=== PATIENT | male | born 1995 | race Caucasian/White ===

== ENCOUNTER → 2019-03-17 15:05 | Outpatient (BNVA) | payer MEDICAID, SELFPAY | PROVIDERS: PCP Family Medicine; Visit Provider Nurse Practitioner Family | DX: Z00.00 Encounter for general adult medical examination without abnormal findings (principal); K59.00 Constipation, unspecified; E55.9 Vitamin D deficiency, unspecified | CPT/HCPCS: 82306 ==

== ENCOUNTER 2019-04-17 04:57 | Emergency (ER) | payer MEDICAID, SELFPAY ==
--- NOTE | 2019-04-17 05:05 | CTR_ITS ---
PROCEDURE INFORMATION: Exam: CT Abdomen And Pelvis With Contrast Exam date and time: 04/17/2019 5:15 AM Age: 23 years old Clinical indication: Nausea and vomiting; Abdominal pain; Acute; Prior surgery; Surgery date: 6+ months; Surgery type: Hernia repair; Additional info: Abd pain TECHNIQUE: Imaging protocol: Computed tomography of the abdomen and pelvis with intravenous contrast. Total DLP: 546.52 mGy-cm Radiation optimization: All CT scans at this facility use at least one of these dose optimization techniques: automated exposure control; mA and/or kV adjustment per patient size (includes targeted exams where dose is matched to clinical indication); or iterative reconstruction. Contrast material: OMNI 300; Contrast volume: 95 ml; Contrast route: 18G; COMPARISON: CT abdomen pelvis w con* [id number] 09/25/2017 2:39 AM FINDINGS: Lungs: Lung bases are clear. Liver: The liver is normal. Gallbladder and bile ducts: The gallbladder is normal. There is no biliary dilation. Pancreas: The pancreas is unremarkable. Spleen: The spleen is unremarkable. Adrenals: The adrenal glands are unremarkable. Kidneys and ureters: The kidneys are unremarkable. No hydronephrosis or stones. No ureteral dilation. Stomach and bowel: The stomach is unremarkable. The small bowel is nondilated. There is no sign of inflammation. The colon is nondistended, thin walled and diffusely fluid filled. There is no pericolonic edema. Appendix: The appendix is normal. Intraperitoneal space: There is no free air or significant intraperitoneal free fluid. Vasculature: The abdominal aorta is normal. There is no aneurysm or dissection. Lymph nodes: There is no lymphadenopathy in the retroperitoneum, mesentery, pelvis or inguinal regions. Bladder: The urinary bladder is unremarkable. Reproductive: The prostate and seminal vesicles are unremarkable. Bones/joints: Bones are unremarkable. Soft tissues: The abdominal wall is intact. CT/CT abdomen pelvis w con* [id number] IMPRESSION: Diffusely fluid-filled nondistended colon suggests a diarrheal illness. There is no sign of colitis. Radiation Dose CTDIVOL = (mGy): DLP = 546.52 (mGy-cm)
--- NOTE | 2019-04-17 05:06 | W.ED.ABDPA2 ---
Documented by User: Miguel Ángel Chapman MD 04/17/19 05:08 HPI - Abdominal Pain General: Chief Complaint: Abdominal Pain Stated Complaint: ABD PAIN Time Seen by Provider: 04/17/19 04:58 Source: patient Mode of arrival: ambulatory Limitations: no limitations History of Present Illness: HPI narrative: 23-year-old male started having right lower quadrant pain over the last few hours. He states it started out in the umbilical region and migrated to his right lower quadrant. He states pain sharp in nature and rates it a 5 out of 10 currently. He denies any vomiting or fever. Denies any worsening improving factors. MD elicited complaint: abdominal pain Pertinent past history: none Onset (ago): hour(s) Pain Consistency: constant Location: RLQ Severity: moderate Quality: sharp Radiation: none Migration to: RLQ Exacerbating factors: nothing Relieving factors: nothing Associated Symptoms: Denies chills, diarrhea, dysuria, fever(s), nausea and vomiting Review of Systems Const: Denies: fever, chills, body aches or change in appetite Eyes: Denies: blurry vision or eye discomfort ENMT: Denies: throat pain or dental pain Card: Denies: chest pain Resp: Denies: shortness of breath GI: Reports: abdominal pain; Denies: nausea, vomiting or diarrhea : Denies: painful urination Musc: Denies: neck pain or back pain Skin/Breast: Denies: rash Neuro: Denies: headache Psych: Denies: depression Ketan/Lymph: Denies: easy bruising All/Imm: Denies: hives PFSH ED PFSH: Medical History (Updated 04/17/19 @ 06:24 by Adriano Vaughn DO) Constipation (Acute) Surgical History (Updated 04/17/19 @ 05:07 by Miguel Ángel Chapman MD) H/O inguinal hernia repair (Acute) Family History Other Cancer Diabetes Hypertension Social History Smoking and tobacco status: never smoked Household members: family Marital status: Single Current occupational status: unemployed Physical Exam Const: COMMON NORMALS: no apparent distress, oriented x3 and healthy appearing HENMT: COMMON NORMALS: normocephalic and head/scalp atraumatic HEAD & SCALP: normocephalic and atraumatic Eye: COMMON NORMALS: PERRL and EOMs intact bilaterally PUPIL: Yes PERRL Neck/C-Spine: COMMON NORMALS: full ROM and supple Chest: COMMONS NORMALS: inspection of chest normal and palpation of chest normal Resp: COMMON NORMALS: normal respiratory effort, no retractions, no use of accessory muscles and clear to auscultation bilaterally AUSCULTATION: clear to auscultation bilaterally Cardio: COMMON NORMALS: regular rate, regular rhythm and no murmurs RATE: regular rate RHYTHM: regular rhythm GI: COMMON NORMALS: normal to inspection, nondistended, normoactive bowel sounds, soft to palpation and no masses PALPATION: Yes soft OTHER: moderate rlq tenderness Extremity: COMMON NORMALS: normal to inspection and full ROM Neuro: COMMON NORMALS: oriented x3, moves all extremities and no focal motor deficits Psych: COMMON NORMALS: mental status grossly normal, thought process normal and cooperative THOUGHT PROCESS: normal thought process Skin: COMMON NORMALS: no rashes or lesions noted and no wounds GENERAL SKIN EXAM: no rashes or lesions noted Course Vital Signs: Vital signs: Vital Signs Pulse Rate 73 04/17/19 05:07 Respiratory Rate 18 04/17/19 05:25 Blood Pressure 127/86 04/17/19 05:07 Pulse Oximetry 98 04/17/19 05:25 MDM - Abdominal Pain Lab Data: Labs: Lab Results 04/17/19 04/17/19 Range/Units 05:15 05:15 WBC 13.5 H (4.0-10.0) 10^3/ uL RBC 4.94 (4.1-5.3) 10^6/u L Hgb 15.9 (11.7-16.6) g/dL Hct 45.6 (42.0-52.0) % MCV 92.3 (80-94) fL MCH 32.2 (28.0-34.0) pg MCHC 34.9 (30.0-36.0) g/dL RDW 11.5 L (12.1-15.1) % Plt Count 233 (130-400) 10^3/c mm MPV 11.3 H (7.4-10.4) fL Neut % (Auto) 87.0 % Lymph % (Auto) 6.9 % Porter % (Auto) 4.5 % Eos % (Auto) 1.1 % Baso % (Auto) 0.2 % Neut # (Auto) 11.8 H (1.8-7.7) 10^3/u L Lymph # (Auto) 0.9 (0.8-4.8) 10^3/u L Porter # (Auto) 0.6 (0.2-0.9) 10^3/u L Eos # (Auto) 0.2 (0.0-0.8) 10^3/u L Baso # (Auto) 0.0 (0.0-0.1) 10^3/u L Nucleated RBC % (a uto) 0 % Nucleated RBCs # 0.0 /100WBC Sodium 138 (136-145) mmol/L Potassium 3.8 (3.5-5.1) mmol/L Chloride 97 L (98-107) mmol/L Carbon Dioxide 28 (22-29) mmol/L Anion Gap 16.8 (5-19) BUN 12 (6-20) mg/dL Creatinine 0.9 (0.7-1.2) mg/dL GFR Calculation 104.6 (90-130) mL/min Glucose 131 H (65-115) mg/dL Calcium 9.8 (8.5-10.5) mg/dL Total Bilirubin 0.5 (0.15-1.2) mg/dL AST 28 (0-40) U/L ALT 37 (0-41) U/L Alkaline Phosphata se 52 (40-130) IU/L Total Protein 7.8 (6.6-8.7) g/dL Albumin 4.7 (3.5-5.2) g/dL Globulin 3.1 (1.3-4.6) g/dL Lipase 20 (13-60) U/L Discharge Plan Discharge Patient Disposition: Home, Self-Care Clinical Impression: Gastroenteritis Condition: Stable Prescriptions: New ondansetron HCl 4 mg tablet 4 mg PO Q6H PRN (Reason: nausea and vomiting) Qty: 14 RF: 0 No Action omeprazole 20 mg capsule,delayed release(DR/EC) 20 mg PO DAILY RF: 0 ergocalciferol (vitamin D2) 50,000 unit capsule 50,000 unit PO .WEEKLY RF: 0 omega-3 fatty acids 1,000 mg capsule 1,000 mg PO DAILY RF: 0 Discharge Orders: Discharge Order (Routine); Ordered 04/17/19 Ordered By: Adriano Vaughn Discharge Diet: Clear Liquid Discharge Activity: Increase activity as tolerated Activity Restrictions/Additional Instructions: Clear liquid diet for 48 hours and advance as tolerated. May use the ondansetron as needed if worsens or changes return to the emergency room Sign Out Sign Out Data: Patient Sign Out occurred on 04/17/19 at 06:19. Patient's care was discussed, and care was transferred from to Adriano Vaughn DO. Coding Level of Care Code ED Mortgage Collector for Chg Fwd Exam Problem Focused Documented by User: Adriano Vaughn DO 04/17/19 06:26 HPI - Abdominal Pain General: Chief Complaint: Abdominal Pain Stated Complaint: ABD PAIN Time Seen by Provider: 04/17/19 04:58 [facility] ED PFSH: Medical History (Updated 04/17/19 @ 06:24 by Adriano Vaughn DO) Constipation (Acute) Surgical History (Updated 04/17/19 @ 05:07 by Miguel Ángel Chapman MD) H/O inguinal hernia repair (Acute) Family History Other Cancer Diabetes Hypertension Social History Smoking and tobacco status: never smoked Household members: family Marital status: Single Current occupational status: unemployed Course ED course: CT identifies the appendix it is normal. There is nondistended fluid-filled colon suggestive of gastroenteritis. Reviewed with the patient. Labs reviewed with the patient. We do not have a UA however he denies any dysuria urgency or frequency. He does report having had diarrhea which was consistent with his CT findings. He denies any hematochezia. Return if has problems. Reevaluation(s): Reevaluation #1: Abdominal exam mild tenderness no guarding or rebound no hepatosplenomegaly nondistended chest clear heart regular Time: 06:26 Vital Signs: Vital signs: Vital Signs Pulse Rate 73 04/17/19 05:07 Respiratory Rate 18 04/17/19 05:25 Blood Pressure 127/86 04/17/19 05:07 Pulse Oximetry 98 04/17/19 05:25 MDM - Abdominal Pain Lab Data: Labs: Lab Results 04/17/19 04/17/19 Range/Units 05:15 05:15 WBC 13.5 H (4.0-10.0) 10^3/ uL RBC 4.94 (4.1-5.3) 10^6/u L Hgb 15.9 (11.7-16.6) g/dL Hct 45.6 (42.0-52.0) % MCV 92.3 (80-94) fL MCH 32.2 (28.0-34.0) pg MCHC 34.9 (30.0-36.0) g/dL RDW 11.5 L (12.1-15.1) % Plt Count 233 (130-400) 10^3/c mm MPV 11.3 H (7.4-10.4) fL Neut % (Auto) 87.0 % Lymph % (Auto) 6.9 % Porter % (Auto) 4.5 % Eos % (Auto) 1.1 % Baso % (Auto) 0.2 % Neut # (Auto) 11.8 H (1.8-7.7) 10^3/u L Lymph # (Auto) 0.9 (0.8-4.8) 10^3/u L Porter # (Auto) 0.6 (0.2-0.9) 10^3/u L Eos # (Auto) 0.2 (0.0-0.8) 10^3/u L Baso # (Auto) 0.0 (0.0-0.1) 10^3/u L Nucleated RBC % (a uto) 0 % Nucleated RBCs # 0.0 /100WBC Sodium 138 (136-145) mmol/L Potassium 3.8 (3.5-5.1) mmol/L Chloride 97 L (98-107) mmol/L Carbon Dioxide 28 (22-29) mmol/L Anion Gap 16.8 (5-19) BUN 12 (6-20) mg/dL Creatinine 0.9 (0.7-1.2) mg/dL GFR Calculation 104.6 (90-130) mL/min Glucose 131 H (65-115) mg/dL Calcium 9.8 (8.5-10.5) mg/dL Total Bilirubin 0.5 (0.15-1.2) mg/dL AST 28 (0-40) U/L ALT 37 (0-41) U/L Alkaline Phosphata se 52 (40-130) IU/L Total Protein 7.8 (6.6-8.7) g/dL Albumin 4.7 (3.5-5.2) g/dL Globulin 3.1 (1.3-4.6) g/dL Lipase 20 (13-60) U/L Discharge Plan Discharge Patient Disposition: Home, Self-Care Clinical Impression: Gastroenteritis Condition: Stable Prescriptions: New ondansetron HCl 4 mg tablet 4 mg PO Q6H PRN (Reason: nausea and vomiting) Qty: 14 RF: 0 No Action omeprazole 20 mg capsule,delayed release(DR/EC) 20 mg PO DAILY RF: 0 ergocalciferol (vitamin D2) 50,000 unit capsule 50,000 unit PO .WEEKLY RF: 0 omega-3 fatty acids 1,000 mg capsule 1,000 mg PO DAILY RF: 0 Discharge Orders: Discharge Order (Routine); Ordered 04/17/19 Ordered By: Adriano Vaughn Discharge Diet: Clear Liquid Discharge Activity: Increase activity as tolerated Activity Restrictions/Additional Instructions: Clear liquid diet for 48 hours and advance as tolerated. May use the ondansetron as needed if worsens or changes return to the emergency room Sign Out Sign Out Data: Patient Sign Out occurred on 04/17/19 at 06:19. Patient's care was discussed, and care was transferred from to Adriano Vaughn DO. Coding Level of Care Code ED Mortgage Collector for Yakov Sosa Exam Problem Focused
[2019-04-17 05:07] VITALS: BP 127/86; PULSE 73; RESP 16; O2SAT 96; BMI 27.1
[2019-04-17] MEDS: sodium chloride 0.9% 1,000 ML 999 ML IV (05:20)
[2019-04-17] MEDS: ondansetron 2 mg/ML SDV 2 mL 4 MG IVP (05:21)
[2019-04-17 05:25] VITALS: RESP 18; O2SAT 98
[2019-04-17] MEDS: morphine 4 mg/mL SDV 1 mL IVP (05:25)
[2019-04-17 05:30] LABS: Basophils % 0.2 %; Eosinophils # 0.2 10^3/uL (0.0-0.8); Eosinophils % 1.1 %; Hematocrit 45.6 % (42.0-52.0); Hemoglobin 15.9 g/dL (11.7-16.6); Lymphocytes # 0.9 10^3/uL (0.8-4.8); Lymphocytes % 6.9 %; Mean Corpuscular HGB Conc 34.9 g/dL (30.0-36.0); Mean Corpuscular Hemoglobin 32.2 pg (28.0-34.0); Mean Corpuscular Volume 92.3 fL (80-94); Mean Platelet Volume 11.3 fL (7.4-10.4); Monocytes # 0.6 10^3/uL (0.2-0.9); Monocytes % 4.5 %; Neutrophils # 11.8 10^3/uL (1.8-7.7); Nucleated Red Blood Cells % 0 %; Platelet Count 233 10^3/cmm (130-400); Red Blood Count 4.94 10^6/uL (4.1-5.3); Red Cell Distribution Width 11.5 % (12.1-15.1); White Blood Count 13.5 10^3/uL (4.0-10.0)
[2019-04-17] MEDS: iohexol 300 mg/mL 100 mL Btl IV (05:46)
[2019-04-17 05:52] LABS: Alanine Aminotransferase 37 U/L (0-41); Albumin Level 4.7 g/dL (3.5-5.2); Alkaline Phosphatase 52 IU/L (40-130); Anion Gap 16.8 (5-19); Aspartate Amino Transferase 28 U/L (0-40); Blood Urea Nitrogen 12 mg/dL (6-20); Calcium 9.8 mg/dL (8.5-10.5); Carbon Dioxide 28 mmol/L (22-29); Chloride 97 mmol/L (98-107); Globulin 3.1 g/dL (1.3-4.6); Glomerular Filtration Rate 104.6 mL/min (90-130); Glucose 131 mg/dL (65-115); Lipase 20 U/L (13-60); Potassium 3.8 mmol/L (3.5-5.1); Sodium 138 mmol/L (136-145); Total Bilirubin 0.5 mg/dL (0.15-1.2); Total Protein 7.8 g/dL (6.6-8.7)
[2019-04-17 06:30] VITALS: BP 110/66; PULSE 18; RESP 18; O2SAT 96
== END 2019-04-17 06:32 | disposition home or self-care (01) ==
PROVIDERS: Emergency Medicine; Emergency Provider Family Medicine
DX: K52.9 Noninfective gastroenteritis and colitis, unspecified (principal)
CPT/HCPCS: 74177; 80053; 83690; 85025; 96361; 96374; 96375; 99282; 99283; J2270; J2405; J7030; Q9967

== ENCOUNTER → 2019-10-08 12:11 | Outpatient (BNVA) | payer MEDICAID, SELFPAY | PROVIDERS: Visit Provider Nurse Practitioner Family | DX: E78.1 Pure hyperglyceridemia (principal); R73.9 Hyperglycemia, unspecified; E55.9 Vitamin D deficiency, unspecified; K21.9 Gastro-esophageal reflux disease without esophagitis | CPT/HCPCS: 80053; 80061; 82306; 83036; 85025 ==

== ENCOUNTER 2019-12-30 08:06 | Outpatient (CLI) | payer MEDICAID, SELFPAY ==
--- NOTE | 2019-12-30 08:00 | US_ITS ---
WS: [id number] RIGHT UPPER QUADRANT ULTRASOUND HISTORY: ABDOMINAL PAIN COMPARISON: 04/17/2019 Liver: 13.6 cm in length. Normal size liver. No bile duct dilatation or mass. Gallbladder: Normally distended gallbladder with no stones or wall thickening. CBD: 0.2 cm Pancreas: Normal size and echogenicity. Right kidney: 10.0 cm in length. Normal size and echogenicity. No hydronephrosis or mass. Aorta and IVC: Unremarkable abdominal aorta and IVC. No ascites. US/US gall bladder [id number] IMPRESSION: Normal RIGHT upper quadrant ultrasound.
== END 2019-12-30 08:07 | disposition home or self-care (01) ==
LOC: US 08:08
PROVIDERS: PCP Nurse Practitioner Family; Visit Provider Surgery
DX: R10.9 Unspecified abdominal pain (principal)
CPT/HCPCS: 76705

== ENCOUNTER 2020-01-16 07:53 | Outpatient (CLI) | payer MEDICAID, SELFPAY ==
--- NOTE | 2020-01-16 07:57 | NM_ITS ---
WS: [id number] NUCLEAR MEDICINE HIDA SCAN CLINICAL INFORMATION: abdominal pain TECHNIQUE: Following intravenous administration of 8.3 mCi of technetium 99m mebrofenin, images of th e abdomen were obtained over the course of 60 minutes. Next, gallbladder ejection fraction was determ ined by obtaining preprandial and one-hour postprandial images of the gallbladder following oral rubens stion of Ensure. COMPARISON: Ultrasound December 30, 2019 FINDINGS: Normal hepatic uptake at 5 minutes. Gallbladder is visualized by 10 minutes. No evidence of acute cho lecystitis. Common bile duct is visualized. Normal small bowel activity. No evidence of choledocholit hiasis. Gallbladder ejection fraction 58% within normal limits. No evidence of chronic cholecystitis. NM/NM hepatobiliary w phar* [id number] IMPRESSION: 1. No evidence of acute or chronic cholecystitis. 2. Gallbladder ejection fraction 58% within normal limits.
== END 2020-01-16 07:54 | disposition home or self-care (01) ==
LOC: RAD 07:57
PROVIDERS: PCP Nurse Practitioner Family; Visit Provider Surgery
DX: R10.9 Unspecified abdominal pain (principal)
CPT/HCPCS: 78227; A9537

== ENCOUNTER → 2020-01-22 13:57 | Outpatient (BNVA) | payer MEDICAID, SELFPAY | PROVIDERS: PCP Nurse Practitioner Family; Visit Provider Surgery | DX: Z11.59 Encounter for screening for other viral diseases (principal); K80.20 Calculus of gallbladder without cholecystitis without obstruction | CPT/HCPCS: 87635 ==

== ENCOUNTER 2020-01-27 10:40 | Day surgery (SDC) | payer MEDICAID, SELFPAY ==
[2020-01-26 14:54] VITALS: BMI 23.9
[2020-01-27] VITALS (8 sets, daily range): BP systolic 119–156; BP diastolic 64–95; PULSE 56–90; RESP 12–23; TEMP 36.3–36.8; O2SAT 97–100
[2020-01-27] MEDS: sodium chloride 0.9% 1,000 ML 30 ML IV (11:39)
--- NOTE | 2020-01-27 11:44 | ANES.PREANE2 ---
Pre-Anesthetic Assessment Pre-Anesthetic Assessment: Height/Weight: Height 1.6 m Weight 61.235 kg Temp Pulse Resp BP Pulse Ox 97.4 F L 78 18 126/64 97 01/27/20 11:10 01/27/20 11:10 01/27/20 11:10 01/27/20 11:10 01/27/20 11:10 Preop Diagnosis: Biliary colic Proposed Procedure: Operation Date: 01/27/20 12:30 Proposed Procedures p Laparoscopic Cholecystectomy 39483 K80.20(Not Applicable) - Dandy Denise MD Familial anesthetic complications: None Was Beta Sam taken within 24 hours: N/A Last intake: Intake Last Liquid Date 01/26/20 Last Liquid Time 22:00 Last Solid Date 01/27/20 Last Solid Time 16:00 Social: Social History: No alcohol and No tobacco Exam: Pre-Anes Outpt Exam: alert, oriented x 3, clear to auscultation bilaterally and regular rate & rhythm Airway: Cervical ROM: WNL MP: 2 Dentition: Other (Chipped (L upper)) GI: GI: GERD Metabolic: Metabolic: Hyperlipidemia Anesthetic Plan: ASA status: 2 Anesthesia: General Risk of > 500 ml blood loss (7ml/kg in children): No Meds/Allergies Current Medications: Current Medications Generic Name Dose Route Start Last Admin Trade Name Freq PRN Reason Stop Dose Admin Sodium Chloride 1,000 mls @ 30 ml s/hr 01/27/20 10:45 01/27/20 11:39 Sodium Chloride 0.9% IV 01/28/20 10:44 30 mls/hr .Q24H [place] Administration PFSH Anesthesia PFSH: Medical History Constipation Generalized epilepsy Hypercholesteremia Hypertriglyceridemia Surgical History H/O inguinal hernia repair History of hernia repair Family History Other Cancer Diabetes Hypertension Social History Smoking and tobacco status: never smoked Second hand smoke exposure: No Alcohol intake: current Alcohol intake frequency: few times a month Alcohol type: hard liquor Lives independently: No Household members: family Marital status: Single Current occupational status: disabled History of recent travel: No Current gender identity: Male Data Anesthesia Cardiac Studies: No Data to Display
--- NOTE | 2020-01-27 12:02 | W.PM.OPSUD ---
Surgery/Procedure H&P Update DATE OF PROCEDURE: January 27, 2020 DATE H&P PERFORMED: 01/21/20 H&P UPDATE INFORMATION: I have reviewed H&P completed within last 30 days, I have examined patient prior to procedure and No changes to prior documentation PREOP DIAGNOSIS: Biliary colic PRIMARY INDICATION FOR PROCEDURE: The same PLANNED PROCEDURE: Operation Date: 01/27/20 12:30 Proposed Procedures p Laparoscopic Cholecystectomy 16595 K80.20(Not Applicable) - Dandy Denise MD
[2020-01-27] MEDS: lidocaine 2% INJ 20 mL INJECTION (13:56)
--- NOTE | 2020-01-27 14:13 | P.OP_ITS ---
Operative Report Date of procedure: January 27, 2020 Pre-op Diagnosis: Biliary colic Post-op diagnosis: other (Chronic cholecystitis) Procedure Done: Laparoscopic cholecystectomy Specimens removed/disposition: Gall bladder and contents Surgeon: Dandy Denise [employer] Serviceperson: Surgical ayush Figueroa Circulating nurse Padmaja Anesthesia: General (transit mixer driver Kyle) Estimated blood loss (mL): 5 Condition: stable Disposition: same day Brief History: This is a pleasant 24-year-old gentleman presents with history of abdominal pain after further evaluation appears to be recurrent biliary colic. Plan of care; After thorough history physical examination and reviewing the chart ,I counseled the patient for laparoscopic cholecystectomy possible open, indications risks including but not limited injury to the common bile duct and other viscera.benefits and alternatives all discussed with the patient, and she did agree to proceed. All questions have been answered and all concerns have been addressed to patient's satisfaction. Rationale was carefully and clearly discussed with the patient.Appropriate informed consent have been reviewed and signed. Procedure: Patient was identified in the holding area and taken back to the operative suite, placed in supine position intubated by anesthesia . Time-out was done verifying the patient's name/date of /planned procedure and destination after the procedure, all were in agreement. SCDs confirmed to be functioning, preoperative antibiotics administered per protocol, and beta terese protocol was confirmed. Patient was appropriately secured to the table, footboard was applied to the OR table, before prep and drape anesthesia was asked to tilt the table back and forth to make sure that the patient is appropriately secured and she was. Prep and drape of the abdomen was done under the usual sterile technique, followed by that infraumbilical skin incision,skin incision was done by a 15 blade knife, and stay sutures were applied to the fascia and Valles trocar technique was used to enter the abdominal without injuring any abdominal viscera, started by low flow gas insufflation followed by a high flow, started with a 10 mm laparoscope and under direct vision there was no evidence of any injuries, the scope then switched to a 30? ,10 millimeter scope and under direct visualization 5 millimeter trocar was inserted in the epigastric region followed by two 5 mm trocars were inserted in the right upper quadrant that was done after injection of local lidocaine 2% at all incision sites. Gallbladder showed mild chronic cholecystitis Patient was then positioned in the head up and tilted to the left Ratcheted forceps were introduced into the lateral most 5mm port and was applied unto the fundus of the gallbladder cephalad and using Bullet forceps the infundibulum of the gallbladder was retracted laterally. Using [place] forceps then L-hook cautery to dissect the peritoneum overlying the Calot's triangle whihc was then opened medially and laterally until the cystic duct and the cystic artery were skeletonized. Dissection was carried along the body of the gallbladder and after ensuring critical view of safety was identfied. Cystic duct and cystic artery where seen connected to the gallbladder. Clips were applied on the cystic duct towards the common bile duct 1 towards the gallbladder then divided is in sharp scissors, 2 clips were then applied onto the cystic artery and 1 towards the gallbladder and divided by sharp scissors. Dissection was then carried along of the gallbladder from the gallbladder fossa using cautery as well as sharp dissection with heat energy. The gallbladder then was dissected out from the gallbladder fossa totally , cholecystectomy was then achieved and was placed in an Endo Catch bag and then retrieved from the Valles trocar site under direct visualization using a 5 mm 30? scope through the epigastric trocar, specimen was then passed to the circulating nurse to go for permanent pathology,irrigation and hemostasis was done to the gallbladder fossa after hemostasis was secured, final survey laparoscopy was done that showed no injuries. The infraumbilical fascial defect was then closed using of eight #1 PDS sutures using a fascial closure device ;Branden Devries under direct visualization Gas was allowed to deflate,Trocars were then taken out under direct vision there was no evidence of bleeding Specimen was passed to the circulating nurse for permanent pathology. No drains were placed and the Infraumbilical incision as well as all trocar sites were closed by by 4-0 Monocryl to approximate the skin edges of the Infraumbilical incision, dressing was applied in the form of surgical glue and the patient patient got extubated and was taken to recovery area in a stable condition. Count of sponges,needles and instruments were completed at the end of the procedure I was present for the whole entire procedure.
[2020-01-27] MEDS: fentaNYL 50 mcg/mL INJ 2mL IVP (14:43)
[2020-01-27] MEDS: HYDROcodone-acetaminophen 5-325 mg Tablet 1 TAB PO (15:07)
[2020-01-27] MEDS: ondansetron 2 mg/ML SDV 2 mL 4 MG IVP (16:40)
--- NOTE | 2020-01-27 17:36 | ANE.PACU2 ---
Inpatient post-anesthesia follow up: Airway intact: Yes Vital signs: Temperature 98 F Pulse Rate 56 Respiratory Rate 17 Blood Pressure 119/72 Pulse Oximetry 100 Oxygen Delivery Me thod Room Air Oxygen Flow Rate 8 Fraction of Inspir ed Oxygen Hydration adequate: Yes Nausea and vomiting: No Pain level: 2 Mental status: Baseline
== END 2020-01-27 17:05 | disposition home or self-care (01) ==
PROVIDERS: PCP Nurse Practitioner Family; Visit Provider Surgery
PROC: 0FT44ZZ Resection of Gallbladder, Percutaneous Endoscopic Approach (ICD-10-PCS; CPT 47562; principal; 2020-01-27 12:30)
DX: K81.1 Chronic cholecystitis (principal); K21.9 Gastro-esophageal reflux disease without esophagitis; E78.5 Hyperlipidemia, unspecified
CPT/HCPCS: 47562; 12345; 88304; 96365; 96374; J0131; J0690; J1100; J2405; J2704; J2710; J3010; J3490; J7030

== ENCOUNTER → 2020-03-17 11:45 | Outpatient (BNVA) | payer MEDICAID, SELFPAY | PROVIDERS: PCP Nurse Practitioner Family; Visit Provider Nurse Practitioner Family | DX: R73.9 Hyperglycemia, unspecified (principal); E55.9 Vitamin D deficiency, unspecified; M72.2 Plantar fascial fibromatosis | CPT/HCPCS: 80053; 80061; 82306; 83036; 85025 ==

== ENCOUNTER → 2020-06-10 14:34 | Outpatient (BNVA) | payer MEDICAID, SELFPAY | PROVIDERS: PCP Nurse Practitioner Family; Referring Provider Nurse Practitioner Family; Visit Provider Podiatrist Foot & Ankle Surgery | DX: M79.671 Pain in right foot (principal) | CPT/HCPCS: 73630 ==

== ENCOUNTER → 2020-06-22 16:40 | Outpatient (BNVA) | payer MEDICAID, SELFPAY | PROVIDERS: PCP Nurse Practitioner Family; Visit Provider Nurse Practitioner Family | DX: M79.645 Pain in left finger(s) (principal) | CPT/HCPCS: 73130 ==

== ENCOUNTER → 2020-07-20 09:35 | Outpatient (BNVA) | payer MEDICAID, SELFPAY | PROVIDERS: PCP Nurse Practitioner Family; Visit Provider Specialist | DX: G40.309 Generalized idiopathic epilepsy and epileptic syndromes, not intractable, without status epilepticus (principal) | CPT/HCPCS: 99215 ==

== ENCOUNTER → 2020-08-23 07:48 | Outpatient (BNVA) | payer MEDICAID, SELFPAY | PROVIDERS: PCP Nurse Practitioner Family; Referring Provider Specialist; Visit Provider Specialist | DX: R56.9 Unspecified convulsions (principal) | CPT/HCPCS: 95816 ==

== ENCOUNTER → 2020-09-20 09:52 | Outpatient (BNVA) | payer MEDICAID, SELFPAY | PROVIDERS: PCP Nurse Practitioner Family; Visit Provider Specialist | DX: G40.309 Generalized idiopathic epilepsy and epileptic syndromes, not intractable, without status epilepticus (principal); F17.200 Nicotine dependence, unspecified, uncomplicated | CPT/HCPCS: 99214 ==

== ENCOUNTER → 2020-10-11 16:45 | Outpatient (BNVA) | payer MEDICAID, SELFPAY | PROVIDERS: PCP Nurse Practitioner Family; Visit Provider Nurse Practitioner Family | DX: R73.03 Prediabetes (principal); E55.9 Vitamin D deficiency, unspecified | CPT/HCPCS: 80053; 80061; 82306; 83036; 85025 ==

== ENCOUNTER → 2020-10-15 09:14 | Outpatient (BNVA) | payer MEDICAID, SELFPAY | PROVIDERS: PCP Nurse Practitioner Family; Visit Provider Nurse Practitioner Family | DX: N28.9 Disorder of kidney and ureter, unspecified (principal); R79.89 Other specified abnormal findings of blood chemistry | CPT/HCPCS: 80048 ==

== ENCOUNTER 2021-05-24 01:01 | Emergency (ER) | payer MEDICAID, SELFPAY ==
--- NOTE | 2021-05-24 01:04 | XRR_ITS ---
PROCEDURE INFORMATION: Exam: XR Right Hand Exam date and time: 05/24/2021 12:30 AM Age: 25 years old Clinical indication: Injury or trauma; Other: Crushing injury; Work related; Patient HX: Patient accidentally smashed tip of right index finger with a hammer at work. C/O pain. ; Additional info: Index finger injury TECHNIQUE: Imaging protocol: XR Right hand. Views: 3 or more views. COMPARISON: No relevant prior studies available. FINDINGS: Bones/joints: No acute fracture or dislocation. Soft tissues: Normal. XR/XR hand RT min 3V* [id number] IMPRESSION: No acute fracture or dislocation.
[2021-05-24 01:10] VITALS: BP 142/85; PULSE 99; RESP 16; TEMP 37; O2SAT 67; BMI 24.7
--- NOTE | 2021-05-24 01:29 | ED_ITS ---
HPI - Extremity Problem General: Chief complaint: Extremity Injury, Upper Stated complaint: RT Index Finger Pain Time Seen by Provider: 05/24/21 01:04 History of Present Illness: Patient is a 25-year-old male comes to the ED with finger injury. Patient smashed his right second digit by accident with a hammer around 10:00 tonight. Pain rated a 9 out of 10. Patient has not taken any [id number] pain med before coming to the ED. Associated symptoms: Deny chest pain, fever(s) or rash Review of Systems Const: Denies: fever(s), chills or fatigue Eyes: Denies: change in vision or eye discomfort ENMT: Denies: throat pain, odynophagia, nasal discharge or nasal congestion Card: Denies: chest pain, palpitations, edema, swelling of feet/ankles, dyspnea on exertion or orthopnea Resp: Denies: dyspnea, productive cough or non-productive cough GI: Denies: abdominal pain, nausea, vomiting, diarrhea, constipation or hematochezia : Denies: flank pain, difficulty urinating, dysuria or hematuria Musc: Reports: extremity pain (right index finger); Denies: neck pain, back pain or extremity swelling Skin/Breast: Denies: rash or new lesions Neuro: Denies: headache(s), numbness in extremities or weakness in extremities PFSH ED PFSH: Medical History Anal fissure Constipation Generalized epilepsy Hypercholesteremia Hypertriglyceridemia Psychiatric care Unspecified mood [affective] disorder Surgical History H/O inguinal hernia repair [facility] of [facility] Family History Other Cancer Diabetes Hypertension Social History Smoking and tobacco status: never smoked Second hand smoke exposure: No Alcohol intake: former Lives independently: No Household members: family Marital status: Single service: No Current occupational status: disabled History of recent travel: No Current gender identity: Male Physical Exam Const: COMMON NORMALS: no acute distress, patient oriented x3 and alert GENERAL APPEARANCE: cooperative and comfortable HENMT: COMMON NORMALS: normocephalic HEAD & SCALP: normocephalic MOUTH: Normal oral and palatal mucosa present THROAT: posterior oropharynx normal and uvula midline Neck/C-Spine: COMMON NORMALS: supple GENERAL: Yes normal visual inspection Resp: COMMON NORMALS: normal respiratory effort, No retractions, No use of accessory muscles and clear to auscultation bilaterally AUSCULTATION: clear to auscultation bilaterally Cardio: COMMON NORMALS: regular rate, regular rhythm, S1 normal heart sound present, S2 normal heart sound present, No gallops present (Cardio), No clicks present (Cardio), No murmurs present (Cardio) and Peripheral pulses 2+ throughout RATE: regular rate RHYTHM: regular rhythm HEART SOUNDS: S1 normal heart sound present and S2 normal heart sound present PERIPHERAL PULSES: Peripheral pulses 2+ throughout GI: COMMON NORMALS: Normal to inspection, nondistended, normoactive bowel sounds present, Soft to palpation, non-tender and no masses PALPATION: Yes Soft to palpation : COMMON NORMALS: Yes no CVA tenderness BLADDER/KIDNEY EXAM: Yes no CVA tenderness Back/Pelvis: COMMON NORMALS: no CVA tenderness Extremity: NARRATIVE EXTREMITY EXAM: Right hand?index finger?some erythema and swelling at distal tip. No subungual hematoma or nail damage seen. Tender to palpation over distal tip of finger. No lacerations or open wounds. Neuro: COMMON NORMALS: patient oriented x3 and moves all extremities SENSORIUM/ORIENTATION: Yes alert Skin: GENERAL SKIN EXAM: dry skin Course Vital Signs: Vital signs: Vital Signs Temperature 98.6 F 05/24/21 01:10 Pulse Rate 68 05/24/21 01:45 Respiratory Rate 18 05/24/21 01:45 Blood Pressure 142/85 05/24/21 01:10 Pulse Oximetry 98 05/24/21 01:45 MDM - Extremity (Nontraumatic) Medical Decision Making Patient is a 25 male comes to the ED with a right index finger injury. Patient accidentally hit distal end of right index finger with a hammer. No subungual hematoma or nailbed damage noted. He has some mild swelling and erythema at distal tip of right index finger. He also has some tenderness to palpation over distal tip of finger. X-ray of right hand showed no acute fractures or findings. Patient diagnosed with contusion of finger. Patient was put in a finger splint and was discharged home. He was told to follow-up with his primary care doctor in a week for reevaluation. Return to ED precautions given. Patient is to agree with plan. Imaging Data Xray Ortho: My impression: Right hand x-ray-no acute fractures or findings noted. Discharge Plan Discharge Patient Disposition: Home Clinical Impression: Contusion of finger of right hand Qualifiers: Encounter type: initial encounter Finger: index finger Damage to nail status: without damage Qualified Code(s): S60.021A - Contusion of right index finger without damage to nail, initial encounter Condition: Stable Prescriptions: No Action divalproex [Depakote ER] 500 mg tablet extended release 24 hr 500 mg PO DAILY Qty: 30 5RF cholecalciferol (vitamin D3) 50 mcg (2,000 unit) tablet 50 mcg PO DAILY Qty: 30 12RF Discharge Orders: Discharge ED (Routine); Ordered 05/24/21 Ordered By: Markel Solomon Referrals: Radha Weiss FNP [Primary Care Provider] - Discharge Diet: Regular Discharge Activity: Increase activity as tolerated Activity Restrictions/Additional Instructions: Follow-up with medical provider as directed in the next 7 to 10 days reevaluation. Wear finger splint for the next 5 to 7 days. You can take off finger splint multiple times a day and do some range of motion exercises in your finger to help with mobility. Take [id number] ibuprofen or Tylenol for pain. Return to the ER or your medical provider if condition worsens. Please read and understand discharge instructions. Thank you for choosing [facility] for your healthcare needs today. Please realize this is an emergency room and that we are providing you with a medical screening exam and this may not be complete and all inclusive of all the testing and or work up that you may need to determine your ailment or severity of your illness. It is very important that you follow up as instructed or that you return to the Emergency Department should you have concerns or if your condition changes or worsens in any way. Coding Level of Care Code ED Electric Blanket Packer for Yakov Sosa Exam Comprehensive
[2021-05-24] MEDS: ibuprofen 800 mg tablet PO (01:44)
[2021-05-24 01:45] VITALS: PULSE 68; RESP 18; O2SAT 98
== END 2021-05-24 01:47 | disposition home or self-care (01) ==
PROVIDERS: Emergency Provider Physician Assistant; PCP Nurse Practitioner Family
DX: S60.021A Contusion of right index finger without damage to nail, initial encounter (principal); W22.8XXA Striking against or struck by other objects, initial encounter
CPT/HCPCS: 73130; 99283

== ENCOUNTER 2021-11-21 12:58 | Emergency (ER) | payer MEDICAID, SELFPAY ==
[2021-11-21 13:04] VITALS: BP 142/73; PULSE 88; RESP 16; TEMP 36.6; O2SAT 96; BMI 24.5
--- NOTE | 2021-11-21 13:10 | ED.C_ITS ---
HPI - Psych General: Chief Complaint: Psychiatric Symptoms Stated Complaint: DEPRESSION/ ANXIETY Time Seen by Provider: 11/21/21 13:04 History of Present Illness: 26-year-old male presents because he is feeling little down and would like something to help him out. Patient denies any suicidal or homicidal ideations. Patient reports that his grandma at Sunday or Sunday and he just fell down about it. He would just like something to help him relax. Patient reports that he has had a history of seizures and was on Depakote in the past but he has been off of that for a while and has no night seizures. Patient with no complaints such as fevers chills cough or any other physical complaints. Associated symptoms: Reports depression; Deny homicidal ideation or suicidal ideation Review of Systems Const: Denies: fever(s) or chills Eyes: Denies: change in vision or blurry vision ENMT: Denies: throat pain or ear or mastoid pain Card: Denies: chest pain or palpitations Resp: Denies: dyspnea or productive cough GI: Denies: abdominal pain, nausea or vomiting : Denies: flank pain or difficulty urinating Musc: Denies: neck pain or back pain Skin/Breast: Denies: rash Neuro: Denies: headache(s) or dizziness Psych: Reports: depression; Denies: suicidal ideation or homicidal ideation PFSH ED PFSH: Medical History Anal fissure Constipation Generalized epilepsy Hypercholesteremia Hypertriglyceridemia Psychiatric care Unspecified mood [affective] disorder Surgical History H/O inguinal hernia repair History of colonoscopy (~09/2018) dr. [place] [facility] [place] of hernia repair Family History Other Cancer Diabetes Hypertension Social History Smoking and tobacco status: never smoked Second hand smoke exposure: No Alcohol intake: former Lives independently: No Household members: family Marital status: Single service: No Current occupational status: disabled History of recent travel: No Current gender identity: Male Course Vital Signs: Vital signs: Vital Signs Temperature 98 F 11/21/21 13:04 Pulse Rate 66 11/21/21 13:50 Respiratory Rate 16 11/21/21 13:04 Blood Pressure 127/78 11/21/21 13:50 Pulse Oximetry 98 11/21/21 13:50 Oxygen Delivery Me thod 11/21/21 13:50 MDM - Psych Medical Decision Making Patient with no suicidal homicidal ideations. Patient was not wanting a extended work-up or evaluation. Patient would like some the just help him with his mood and relax little bit. I discussed with him I will provide him with some Paxil to help with both depression and any anxiety. Patient stable and discharged home Discharge Plan Discharge Patient Disposition: Home Clinical Impression: Depression, Acute reaction to situational stress Condition: Stable Prescriptions: New Paxil 10 mg tablet 10 mg PO DAILY Qty: 30 0RF No Action divalproex [Depakote ER] 500 mg tablet extended release 24 hr 500 mg PO DAILY Qty: 30 5RF cholecalciferol (vitamin D3) 50 mcg (2,000 unit) tablet 50 mcg PO DAILY Qty: 30 12RF Discharge Orders: Discharge ED (Routine); Ordered 11/21/21 Ordered By: Arnold Solis Referrals: Radha Weiss FNP [Primary Care Provider] - Discharge Diet: Advance as tolerated Discharge Activity: Resume usual activity Patient Instructions: Depression (ED), Opioid Safety, Pain Management, Stress Activity Restrictions/Additional Instructions: Follow-up with your primary care provider as needed. Please call your local behavioral health provider if you need to visit with somebody to help you cope due to your recent loss Coding Level of Care Code ED Supervisor Lens Generating for Yakov Sosa
[2021-11-21 13:50] VITALS: BP 127/78; PULSE 66; O2SAT 98
== END 2021-11-21 13:45 | disposition home or self-care (01) ==
PROVIDERS: Emergency Provider Student in an Organized Health Care Education/Training Program; PCP Nurse Practitioner Family
DX: F32.A Depression, unspecified (principal); F43.0 Acute stress reaction
CPT/HCPCS: 99283

== ENCOUNTER 2021-11-21 18:20 | Emergency (ER) | payer MEDICAID, SELFPAY ==
[2021-11-21 18:24] VITALS: BP 140/85; PULSE 78; RESP 16; TEMP 36.7; O2SAT 97
--- NOTE | 2021-11-21 19:31 | W.ED.PSYCHS ---
HPI - Psych General: Chief Complaint: Psychiatric Symptoms Stated Complaint: Mother wants him 96\SI Time Seen by Provider: 11/21/21 18:50 History of Present Illness: 26-year-old male brought in by family because of concerns for suicidal ideation. Patient denies any suicidal ideation. Patient was seen by me this morning denied suicidal and homicidal ideation at that time. Patient mom states that he is. He reports that he does not want to stay and have any further work-up. He was prescribed Paxil this morning by me. Associated symptoms: Reports depression; Deny homicidal ideation or suicidal ideation Review of Systems Const: Denies: fever(s) or chills Card: Denies: chest pain or palpitations Resp: Denies: dyspnea or productive cough GI: Denies: abdominal pain, nausea or vomiting : Denies: flank pain or difficulty urinating Musc: Denies: neck pain or back pain Skin/Breast: Denies: rash or pruritus Neuro: Denies: headache(s) or numbness in extremities Psych: Reports: depression; Denies: anxiety, suicidal ideation or homicidal ideation [facility] ED PFSH: Medical History Anal fissure Constipation Generalized epilepsy Hypercholesteremia Hypertriglyceridemia Psychiatric care Unspecified mood [affective] disorder Surgical History H/O inguinal hernia repair History of colon[place] (~09/2018[place] [facility] [place] Family History Other Cancer Diabetes Hypertension Social History Smoking and tobacco status: never smoked Second hand smoke exposure: No Alcohol intake: former Lives independently: No Household members: family Marital status: Single service: No Current occupational status: disabled History of recent travel: No Current gender identity: Male Physical Exam Const: COMMON NORMALS: no acute distress, patient oriented x3 and alert Resp: COMMON NORMALS: normal respiratory effort, No use of accessory muscles and clear to auscultation bilaterally AUSCULTATION: clear to auscultation bilaterally Cardio: COMMON NORMALS: regular rate and regular rhythm RATE: regular rate RHYTHM: regular rhythm Neuro: COMMON NORMALS: patient oriented x3 SENSORIUM/ORIENTATION: Yes alert Psych: COMMON NORMALS: speech normal APPEARANCE: Yes grossly normal SPEECH: Yes normal speech MOOD & AFFECT: Yes depressed mood Course Vital Signs: Vital signs: Vital Signs Temperature 98.1 F 11/21/21 18:24 Pulse Rate 78 11/21/21 18:24 Respiratory Rate 16 11/21/21 18:24 Blood Pressure 140/85 11/21/21 18:24 Pulse Oximetry 97 11/21/21 18:24 Oxygen Delivery Me thod 11/21/21 18:24 MDM - Psych Medical Decision Making Patient continues denies suicidal homicidal thoughts or wanting to stay. Patient did not initially agree to stay 1 night then when it we told him that there was no beds available and we will have to look for beds outside of the facility he states that he was ready to go then. Mom feels that he does have some suicidal ideations. I discussed with mom that she does truly feel he has that then she will need to take him and go to the police department where they can fill out an affidavit and have a tax manager cpa sign it then he would be on a 96-hour hold. However he is multiple times denied it for me and I am unwilling to sign a hold since we do not have any indications that he is suicidal. Patient was discharged home with mom in stable condition as he requested Discharge Plan Discharge Condition: Stable Prescriptions: No Action divalproex [Depakote ER] 500 mg tablet extended release 24 hr 500 mg PO DAILY Qty: 30 5RF cholecalciferol (vitamin D3) 50 mcg (2,000 unit) tablet 50 mcg PO DAILY Qty: 30 12RF Paxil 10 mg tablet 10 mg PO DAILY Qty: 30 0RF Referrals: Radha Weiss FNP [Primary Care Provider] - Coding Level of Care Code ED Director Financial Services for Yakov Sosa
== END 2021-11-21 19:44 | disposition home or self-care (01) ==
PROVIDERS: Emergency Provider Student in an Organized Health Care Education/Training Program; PCP Nurse Practitioner Family
DX: R45.851 Suicidal ideations (principal)
CPT/HCPCS: 99285

== ENCOUNTER → 2021-11-23 12:00 | Outpatient (BNVA) | payer MEDICAID, SELFPAY | PROVIDERS: PCP Nurse Practitioner Family; Visit Provider Nurse Practitioner Family | DX: F41.9 Anxiety disorder, unspecified (principal); F32.A Depression, unspecified; R45.4 Irritability and anger; E55.9 Vitamin D deficiency, unspecified; R73.9 Hyperglycemia, unspecified; E78.1 Pure hyperglyceridemia; R19.7 Diarrhea, unspecified; R63.0 Anorexia | CPT/HCPCS: 80053; 80061; 82306; 82607; 83036; 84443; 85025 ==

== ENCOUNTER → 2022-12-26 14:44 | Outpatient (BNVA) | payer MEDICAID, SELFPAY | PROVIDERS: PCP Nurse Practitioner Family; Visit Provider Specialist | DX: F41.9 Anxiety disorder, unspecified; F32.A Depression, unspecified; G40.109 Localization-related (focal) (partial) symptomatic epilepsy and epileptic syndromes with simple partial seizures, not intractable, without status epilepticus; R45.4 Irritability and anger | CPT/HCPCS: 99215 ==

== ENCOUNTER 2023-11-19 18:49 | Emergency (ER) | payer MEDICAID, SELFPAY ==
[2023-11-19 18:57] VITALS: BP 117/80; PULSE 86; RESP 16; TEMP 36.6; O2SAT 94
[2023-11-19] MEDS: lidocaine 2% INJ 20 mL INJECTION (19:50)
[2023-11-19] MEDS: cephALEXin 500 mg Capsule PO (20:42)
[2023-11-19] MEDS: mupirocin oint 22 gm 1 APPLIC TOPICAL (20:43)
[2023-11-19 20:45] VITALS: BP 125/79; PULSE 91; O2SAT 95
--- NOTE | 2023-11-20 00:31 | W.ED.SKABFB ---
HPI - Skin/Abscess/Foreign Bdy General: Chief complaint: Skin/Abscess/Foreign Body Stated complaint: Fish Hook in left palm Time Seen by Provider: 11/19/23 19:32 Source: patient Mode of arrival: ambulatory Limitations: no limitations History of Present Illness: Patient is a 28-year-old male who presents the emergency department with a fishhook stuck in left hand this occurred prior to arrival. Pain noted to palmar aspect of left hand, states his tetanus is up-to-date. Bleeding controlled on arrival. Has not taken anything for pain yet. No other concerning historical elements or symptoms reported this time. MD complaint: foreign body Onset (ago): hour(s) Tetanus up to date: yes Location: L hand Context: other ([place] in left hand) Associated symptoms: Deny chills, fever(s), nausea or vomiting Related Data Previous Rx's Medication Instructions Recorded cyanocobalamin (vitamin B-12) 1,000 mcg sublingual DAILY #90 ea 12/01/21 1,000 mcg sublingual lozenge omega-3 fatty acids 1,000 mg 1,000 mg PO DAILY #90 caps 12/01/21 capsule amoxicillin 875 mg tablet 875 mg PO BID #20 tabs 02/13/22 paroxetine HCl 10 mg tablet See Rx Instructions .Route 06/29/22 .COMPLEX #30 tabs divalproex 500 mg tablet,extended 500 mg PO BID #60 tabs 12/26/22 release 24 hr (Depakote ER) cephalexin 500 mg capsule 500 mg PO BID 7 days #14 caps 11/19/23 mupirocin 2 % topical ointment 1 applic topical BID #15 grams 11/19/23 Allergies Allergy/AdvReac Type Severity Reaction Status Date / Time No Known Allergies Allergy Verified 11/19/23 19:00 Review of Systems General: Reports: 10 or more systems reviewed and unremarkable except in HPI and below Const: Denies: fever(s) or chills Card: Denies: chest pain Resp: Denies: dyspnea GI: Denies: abdominal pain, nausea, vomiting or diarrhea Musc: Reports: extremity pain (Left hand pain); Denies: joint pain Skin/Breast: Reports: other ([place] in left hand); Denies: rash, skin pain, skin tenderness or new lesions Neuro: Denies: headache(s) PFSH ED PFSH: Medical History Unspecified mood [affective] disorder Anal fissure Generalized epilepsy Hypercholesteremia Hypertriglyceridemia Constipation Surgical History History of colonoscopy (~09/2018) dr. [place] [facility] [place] History of hernia repair H/O inguinal hernia repair Family History Other Cancer Diabetes Hypertension Social History Smoking and tobacco/nicotine status: never used tobacco/nicotine Second hand smoke exposure: No Alcohol intake: former Substance/Drug Use: never Lives independently: No Household members: family Marital status: Single service: No Current occupational status: disabled Current gender identity: Male Physical Exam Const: COMMON NORMALS: no acute distress, average body habitus, patient oriented x3, no limitations, healthy appearing, alert and well nourished HENMT: COMMON NORMALS: normocephalic and atraumatic HEAD & SCALP: normocephalic and atraumatic Neck/C-Spine: COMMON NORMALS: full ROM, no lymphadenopathy, supple and no meningeal signs Resp: COMMON NORMALS: normal respiratory effort, No use of accessory muscles and clear to auscultation bilaterally AUSCULTATION: clear to auscultation bilaterally Cardio: COMMON NORMALS: regular rate and regular rhythm RATE: regular rate RHYTHM: regular rhythm Extremity: COMMON NORMALS: full ROM and capillary refill normal NARRATIVE EXTREMITY EXAM: Diffuse tenderness to palpation of patient's left palm Neuro: COMMON NORMALS: patient oriented x3 SENSORIUM/ORIENTATION: Yes alert MENINGEAL SIGNS: Yes no meningeal signs Skin: COMMON NORMALS: turgor normal NARRATIVE SKIN EXAM: Large curved hook noted to be embedded in patient's left thenar eminence, no active bleeding. GENERAL SKIN EXAM: turgor normal Procedures Foreign Body Removal Site: left and hand Description of foreign body: fish hook Sedation/Analgesia: none Technique: manual removal Confirmed by:: direct visualization Complications: none Post-procedure exam: awake, alert Neurovascular: normal distal pulse, normal capillary fill, distal light touch sensation intact and distal motor function normal Course Vital Signs: Vital signs: Vital Signs Temperature 97.9 F 11/19/23 18:57 Pulse Rate 91 11/19/23 20:45 Respiratory Rate 16 11/19/23 18:57 Blood Pressure 125/79 11/19/23 20:45 Pulse Oximetry 95 11/19/23 20:45 Oxygen Delivery Me thod Room Air 11/19/23 18:57 MDM - Skin/Abscess/Foreign Bdy Medicial Decision Making Patient arrived with gretaok in the left hand. Technique was that the site was locally anesthetized with about 8 cc of lidocaine, and the hook was pushed further until becky broke the skin at separate site, and was then cut with wire cutters and pull all the way through. This was performed successfully with minimal complications, only some pain. No significant bleeding and we will start the patient on a topical bacitracin as well as Keflex. He is to monitor for any signs of infection and to keep wound clean and dry at all times. Reasons to return discussed and he will follow-up with primary care. Care of this patient was discussed with Dr. Solis. No radiology studies performed this visit Discharge Plan Discharge Patient Disposition: Home Clinical Impression: Fish hook injury of left hand Condition: Stable Prescriptions: New cephalexin 500 mg capsule 500 mg PO BID 7 Days Qty: 14 0RF mupirocin 2 % ointment 1 applic topical BID Qty: 15 0RF No Action amoxicillin 875 mg tablet 875 mg PO BID Qty: 20 0RF divalproex [Depakote ER] 500 mg tablet extended release 24 hr 500 mg PO BID Qty: 60 11RF Rx Instructions: ok to take both tablets at once omega-3 fatty acids 1,000 mg capsule 1,000 mg PO DAILY Qty: 90 3RF cyanocobalamin (vitamin B-12) 1,000 mcg lozenge 1,000 mcg sublingual DAILY Qty: 90 3RF paroxetine HCl 10 mg tablet See Rx Instructions .ROUTE .COMPLEX Qty: 30 0RF Dose Instruction: Take 1 tablet by mouth once daily Rx Instructions: Take 1 tablet by mouth once daily Discharge Orders: Discharge ED (Routine); Ordered 11/19/23 Ordered By: Gurjit Joseph Referrals: Radha Weiss, TRAFFIC SIGN ERECTION SUPERVISOR [Primary Care Provider] - Discharge Diet: Usual diet Discharge Activity: Increase activity as tolerated Patient Instructions: Wound Care (General) Activity Restrictions/Additional Instructions: Topical bacitracin. Take Keflex as prescribed as well. You may apply ice for added relief. Tylenol and ibuprofen for any pain. Keep wound dry, may clean with soap and water when bathing. Return with any signs of infection and follow-up with primary care Coding Level of Care Code ED Dispute Coordinator for Yakov Sosa
== END 2023-11-19 20:46 | disposition home or self-care (01) ==
PROVIDERS: Emergency Provider Physician Assistant; PCP Nurse Practitioner Family
DX: S61.442A Puncture wound with foreign body of left hand, initial encounter (principal); W26.8XXA Contact with other sharp object(s), not elsewhere classified, initial encounter
CPT/HCPCS: 99283